=== PATIENT | male | born 1945 | race American Indian/Alaskan Native ===

== ENCOUNTER 2016-07-04 09:59 | Emergency (ER) | payer MEDICARE, BC ==
--- NOTE | 2016-07-04 15:30 | Emergency Department Report ---
- General Chief Complaint: Wound/Laceration Stated Complaint: RT HAND LACERATION Time Seen by Provider: 07/04/16 15:26 Source: patient Mode of arrival: Ambulatory Limitations: No Limitations - History of Present Illness Initial Comments: Patient reports he suffered a 4 cm laceration to his Hernadez right hand while putting a window regulator in his car last night around 7 PM. Bleeding is controlled Onset/Timin -: hour(s) Time: 19:00 Location: other (right hand) Extremity Location: Right: Hand Place: home Patient Tetanus UTD: Yes Context: accidental Associated Symptoms: pain. denies: loss of feeling/numbness, suspect foreign body present, unable to move injured part, weakness followed by dizziness, nausea/vomiting, fever Treatments Prior to Arrival: bandage - Related Data Previous Rx's Medication Instructions Recorded Last Taken Type Acetaminophen [Acetaminophen TAB] 650 mg PO Q6HR PRN #15 tablet 07/04/16 Unknown Rx Allergies Allergy/AdvReac Type Severity Reaction Status Date / Time No Known Allergies Allergy Verified 07/04/16 10:25 ED Review of Systems ROS: Stated complaint: RT HAND LACERATION Other details as noted in HPI Constitutional: denies: chills, diaphoresis, fever, malaise, weakness Respiratory: denies: cough, orthopnea, shortness of breath, SOB with exertion, SOB at rest, stridor, wheezing Cardiovascular: denies: chest pain, palpitations, dyspnea on exertion, orthopnea , edema, syncope, paroxysmal nocturnal dyspnea Musculoskeletal: arthralgia (right hand). denies: back pain, joint swelling, myalgia Skin: other (centimeter laceration to the palmar right hand). denies: rash, lesions, change in color, change in hair/nails, pruritus Hematological/Lymphatic: denies: easy bleeding, easy bruising, swollen glands ED Past Medical Hx - Past Medical History Hx Hypertension: Yes - Surgical History Additional Surgical History: CAROTID SURGERY. TURP - Social History Smoking Status: Current Every Day Smoker Substance Use Type: Alcohol, Marijuana - Medications Home Medications: Home Medications Medication Instructions Recorded Confirmed Last Taken Type Acetaminophen [Acetaminophen TAB] 650 mg PO Q6HR PRN #15 tablet 07/04/16 Unknown Rx ED Physical Exam - General Limitations: No Limitations General appearance: alert, in no apparent distress - Head Head exam: Present: atraumatic - ENT ENT exam: Present: normal exam, mucous membranes moist. Absent: mucous membranes dry - Respiratory Respiratory exam: Present: normal lung sounds bilaterally. Absent: respiratory distress, wheezes, rales, rhonchi, stridor, chest wall tenderness, accessory muscle use, decreased breath sounds, prolonged expiratory - Cardiovascular Cardiovascular Exam: Present: regular rate, normal rhythm, normal heart sounds. Absent: systolic murmur, diastolic murmur, rubs, gallop, clicks, JVD, S3, S4 - Expanded Upper Extremity Exam Right Hand Wrist exam: Present: normal inspection, full ROM, tenderness (with palpation), laceration (4 cm superficial laceration right hernadez below index finger, no bleeding or foreign body noted). Absent: swelling, abrasion, ecchymosis, deformity, crepidus, dislocation, erythema, amputation, nail avulsion, subungual hematoma Hand L/R Front: 1 - Positive: laceration (superficial) Neuro motor exam: Present: wrist extension intact, thumb opposition intact, thumb IP flexion intact, thumb adduction intact, fingers 2-5 abduction intact Neurosensory exam: Present: 2-point discrimination, radial nerve intact, ulnar nerve intact, median nerve intact Vascular: Present: normal capillary refill, radial pulse (2+), brachial pulse (2 +), ulnar pulse (2+). Absent: vascular compromise, Pallo, pulse deficit radial art, pulse deficit ulnar art, pulse deficit brachial art - Neurological Exam Neurological exam: Present: alert, oriented X3, CN II-XII intact, normal gait, reflexes normal. Absent: motor sensory deficit - Skin Skin exam: Present: warm, dry, intact, normal color. Absent: rash ED Course Vital Signs 07/04/16 07/04/16 10:13 16:28 Temperature 97.5 F L 98 F Pulse Rate 73 53 L Respiratory 16 20 Rate Blood Pressure 145/103 Blood Pressure 180/87 [Left] O2 Sat by Pulse 99 98 Oximetry - Reevaluation(s) Reevaluation #1: 07/04/16 15:41 analgesic, wound care and steri-strips ordered ED Medical Decision Making - Lab Data Vital Signs 07/04/16 10:13 Temperature 97.5 F L Pulse Rate 73 Respiratory 16 Rate Blood Pressure 145/103 O2 Sat by Pulse 99 Oximetry - Medical Decision Making During the course of ED, analgesic, wound care and Steri-Strips were ordered. Patient was informed that laceration did not meet criteria for suture repair because injury was greater than 12 hours old. The wound was irrigated and cleaned with Saline, examined for foreign bodies and placed with steri-strips. Patient was sent home with prescription for Tylenol, instructed to keep the wound clean and dry, he verbalized understanding. Also instructed the patient to follow with selective referral regarding elevated blood pressure. - Differential Diagnosis Right Hand Laceration, Right Hand Contusion, Critical care attestation.: If time is entered above; I have spent that time in minutes in the direct care of this critically ill patient, excluding procedure time. ED Disposition Clinical Impression: Laceration of right hand Qualifiers: Encounter type: initial encounter Qualified Code(s): S61.411A - Laceration without foreign body of right hand, initial encounter Disposition: DISCHARGED TO HOME OR SELFCARE Is pt being admited?: No Does the pt Need Aspirin: No Condition: Stable Instructions: Acute Wound Care (ED), Skin Adhesive Care (ED) Additional Instructions: Take medication as directed. Keep the wound clean and dry. Return back to the ED for worsening symptoms or concerns such as fever, increased pain, redness or drainage from the site Prescriptions: Acetaminophen [Acetaminophen TAB] 650 mg PO Q6HR PRN #15 tablet PRN Reason: Pain Referrals: PRIMARY CAREMD [Primary Care Provider] - 3-5 Days [facility] [Outside] - 3-5 Days Time of Disposition: 15:49
[2016-07-04] MEDS ORDERED: TYLENOL PO ONE (15:32)
[2016-07-04 16:29] VITALS: BP 180/87
== END 2016-07-04 16:32 | disposition home or self-care (01) ==
LOC: ED 09:59
DX: S61.411A Laceration without foreign body of right hand, initial encounter (principal); I10 Essential (primary) hypertension; F17.200 Nicotine dependence, unspecified, uncomplicated; F12.90 Cannabis use, unspecified, uncomplicated; W45.8XXA Other foreign body or object entering through skin, initial encounter; W22.8XXA Striking against or struck by other objects, initial encounter; Y93.89 Activity, other specified; Y99.8 Other external cause status; Y92.009 Unspecified place in unspecified non-institutional (private) residence as the place of occurrence of the external cause
CPT/HCPCS: 99283